=== PATIENT | male | born 1975 | race Caucasian/White ===

== ENCOUNTER → 2019-01-07 | Outpatient (CLI) | payer OTHER ==
[~2019-01-07] MED LIST: MOTRIN800 MG PO; PREDNISONE20 MG PO; ZITHROMAX Z PA250 MG PO
== END | disposition home or self-care (01) ==
LOC: RAD 11:03
DX: R07.9 Chest pain, unspecified (principal); R10.9 Unspecified abdominal pain; K21.9 Gastro-esophageal reflux disease without esophagitis; F17.200 Nicotine dependence, unspecified, uncomplicated; Z86.19 Personal history of other infectious and parasitic diseases

== ENCOUNTER 2019-03-29 17:31 | Emergency (ER) | payer OTHER ==
[~2019-03-29] VITALS: Ht 185.4 cm; Wt 136.1 kg
[2019-03-29 18:26] VITALS: BP 166/88
== END 2019-03-29 18:13 | disposition home or self-care (01) ==
LOC: ED 17:31
DX: F19.10 Other psychoactive substance abuse, uncomplicated (principal); F17.200 Nicotine dependence, unspecified, uncomplicated; Z98.890 Other specified postprocedural states